=== PATIENT | male | born 1960 | race Hispanic/Latino ===

== ENCOUNTER 2019-04-04 10:03 | Emergency (ER) | payer SELFPAY ==
[~2019-04-04] VITALS: Ht 165.1 cm; Wt 47.6 kg
[~2019-04-04 10:03] MED LIST: PROTONIX40 MG/ML PO; REGLAN10 MG PO; SUCRALFATE1 G/10 ML PO
[2019-04-04] MEDS ORDERED: DIPHENHYDRAMINE HCL 25 MG CAP PO ONE (11:00)
[2019-04-04] MEDS ORDERED: FAMOTIDINE 20 MG TAB PO ONE (11:00)
[2019-04-04] MEDS ORDERED: DEXAMETHASONE SOD PHOS 10 MG/1 ML VIAL IM ONE (11:00)
--- NOTE | 2019-04-04 11:05 | NUR ---
PATIENT WALKING UP AND DOWN HALLWAY WITH WALKER. COMPLAINING ITS COLD. PATIENT GIVEN WARM BLANKETS
--- NOTE | 2019-04-04 11:08 | Diagnostic Imaging Report ---
LEFT HAND - 3 Image(s) HISTORY: Swollen hand, query fracture, no history of trauma COMPARISON: None available. FINDINGS: Bones: Diffusely decreased mineralization of the osseous structures limits bone detail. No acute displaced fracture. Chronic healed fracture deformity of the distal radius, without subchondral collapse. Diffuse patchy sclerosis of the lunate. No aggressive osseous lesion. Joints: Mild scattered degenerative changes. Soft tissues: Nonspecific dorsal predominant soft tissue swelling. IMPRESSION: 1. Nonspecific soft tissue swelling. 2. Chronic healed fracture deformity of the distal radius and ulnar positive variance. 3. Findings which could be seen in the setting of chronic lunate avascular necrosis. 4. Diffuse osseous demineralization. Signed by: Dr. Jose Armando Bush D.O., M.M.M. on 04/04/2019 11:05 AM
== END 2019-04-04 11:36 | disposition home or self-care (01) ==
LOC: ER 10:03
DX: T63.481A Toxic effect of venom of other arthropod, accidental (unintentional), initial encounter (principal); T78.49XA Other allergy, initial encounter
CPT/HCPCS: 73130; 99283; J1100

== ENCOUNTER 2021-06-24 17:26 | Emergency (ER) | payer SELFPAY ==
[~2021-06-24] VITALS: Ht 165.1 cm; Wt 47.6 kg
[2021-06-24] MEDS ORDERED: IBUPROFEN 600 MG TAB PO STA (19:17)
[2021-06-24] MEDS ORDERED: IBUPROFEN 600 MG TAB ONE (19:34)
== END 2021-06-24 19:48 | disposition home or self-care (01) ==
LOC: ER 17:36
DX: S00.83XA Contusion of other part of head, initial encounter (principal); S60.222A Contusion of left hand, initial encounter; S60.221A Contusion of right hand, initial encounter; Y04.0XXA Assault by unarmed brawl or fight, initial encounter; Y92.008 Other place in unspecified non-institutional (private) residence as the place of occurrence of the external cause; F17.210 Nicotine dependence, cigarettes, uncomplicated
CPT/HCPCS: 70450; 99283

== ENCOUNTER 2023-01-25 10:47 | Emergency (ER) | payer SELFPAY ==
[~2023-01-25] VITALS: Ht 162.6 cm; Wt 48.3 kg
[2023-01-25] MEDS ORDERED: IBUPROFEN 600 MG TAB PO ONE (11:19)
[2023-01-25] MEDS ORDERED: TETANUS/DIPHTHERIA TOX ADULT 0.5 ML SYR IM ONE (11:30)
[2023-01-25] MEDS ORDERED: TETANUS/DIPHTHERIA TOX ADULT 0.5 ML SYR ONE (11:30)
[2023-01-25] MEDS ORDERED: IBUPROFEN 600 MG TAB ONE (11:30)
[2023-01-25] MEDS ORDERED: CLEOCIN HCL300 MG PO (12:36)
[2023-01-25] MEDS ORDERED: NAPROSYN500 MG PO (12:36)
[2023-01-25 12:45] VITALS: O2SAT 99
[2023-01-25] MEDS ORDERED: BACITRACIN ZINC 15 GM OINT TOP SCH (12:45)
== END 2023-01-25 12:45 | disposition home or self-care (01) ==
LOC: FSED 10:52
DX: S91.031A Puncture wound without foreign body, right ankle, initial encounter (principal); S90.521A Blister (nonthermal), right ankle, initial encounter; L08.9 Local infection of the skin and subcutaneous tissue, unspecified; W45.8XXA Other foreign body or object entering through skin, initial encounter; W22.8XXA Striking against or struck by other objects, initial encounter; Y93.89 Activity, other specified
CPT/HCPCS: 90471; 90714; 96372; 99284

== ENCOUNTER 2024-11-15 18:38 | Emergency (ER) | payer OTHER ==
[~2024-11-15] VITALS: Ht 162.6 cm; Wt 49.4 kg
[~2024-11-15 18:38] MED LIST changes: +CLEOCIN HCL300 MG PO; +NAPROSYN500 MG PO
[2024-11-15 18:45] VITALS: PULSE 76; RESP 20
[2024-11-15 19:42] VITALS: BP 129/81
[2024-11-15 19:48] VITALS: TEMP 98.1; O2SAT 96
== END 2024-11-15 19:49 | disposition home or self-care (01) ==
LOC: FSED 19:26
DX: S50.02XA Contusion of left elbow, initial encounter (principal); S50.12XA Contusion of left forearm, initial encounter; X50.0XXA Overexertion from strenuous movement or load, initial encounter; Y93.E6 Activity, residential relocation; Y92.89 Other specified places as the place of occurrence of the external cause
CPT/HCPCS: 99284